=== PATIENT | female | born 1975 | race Caucasian/White ===

== ENCOUNTER 2022-02-28 22:56 | Emergency (ER) | payer BC, SELFPAY ==
[2022-02-28 23:27] VITALS: BP 142/93; PULSE 64; RESP 18; TEMP 36.6; O2SAT 97; BMI 33.9
[2022-02-28] MEDS: fluorescein 1 mg Strip EYE-RIGHT (23:43)
[2022-02-28] MEDS: tetracaine 0.5% Op Soln 4 mL Btl 1 DROP EYE-RIGHT (23:43)
--- NOTE | 2022-02-28 23:44 | W.ED.EYEPROB ---
HPI - Eye Problem General: Chief complaint: Eye Problems Stated complaint: Right eye swollen Time Seen by Provider: 02/28/22 23:37 Source: patient Mode of arrival: ambulatory Limitations: no limitations History of Present Illness: 46-year-old female who states that the last 2 to 3 days she been having some increased sinus pressure states she gets chronic sinus infections. States that though this morning she woke up with pain and redness to her right and her eye was swollen shut she states she does wear contacts does not wear contacts throughout the day states her pain is a 5 out of 10 denies any foreign bodies denies any worsening improving factors. Associated symptoms: Denies fever(s), headache(s), nausea, neck pain or vomiting Review of Systems Const: Denies: fever(s), chills, body aches or change in appetite Eyes: Reports: eye discomfort and eye redness ENMT: Reports: nasal congestion Card: Denies: chest pain Resp: Denies: dyspnea GI: Denies: abdominal pain, nausea, vomiting or diarrhea : Denies: dysuria Musc: Denies: neck pain or back pain Skin/Breast: Denies: rash Neuro: Denies: headache(s) Psych: Denies: depression Kevin/Lymph: Denies: easy bruising All/Imm: Denies: urticaria Physical Exam Const: COMMON NORMALS: no acute distress, patient oriented x3 and healthy appearing HENMT: COMMON NORMALS: normocephalic and atraumatic HEAD & SCALP: normocephalic and atraumatic Eye: COMMON NORMALS: Equal, round and reactive pupils present and EOMs intact bilaterally PUPIL: Yes Equal, round and reactive pupils present OTHER: Erythema noted to right eye no foreign bodies no abrasion no ulcer Neck/C-Spine: COMMON NORMALS: full ROM and supple Chest: COMMONS NORMALS: normal inspection of the chest Resp: COMMON NORMALS: normal respiratory effort Cardio: COMMON NORMALS: regular rate RATE: regular rate GI: INSPECTION: Yes normal to inspection Extremity: COMMON NORMALS: normal to inspection and full ROM Neuro: COMMON NORMALS: patient oriented x3, moves all extremities and no focal motor deficits Psych: COMMON NORMALS: mental status grossly normal, Normal thought process present and cooperative THOUGHT PROCESS: Normal thought process present Skin: COMMON NORMALS: no rashes or lesions noted and no wounds GENERAL SKIN EXAM: no rashes or lesions noted Course Vital Signs: Vital signs: Vital Signs Temperature 97.8 F 02/28/22 23:27 Pulse Rate 64 02/28/22 23:27 Respiratory Rate 18 02/28/22 23:27 Blood Pressure 142/93 02/28/22 23:27 Pulse Oximetry 97 02/28/22 23:27 MDM - Eye Problem Medical Decision Making Patient presents with sinusitis along with conjunctivitis she has no signs of corneal ulcer on exam we will place her on tobramycin she is not to wear her contacts until clear we will place her on Keflex for the sinus infection she is to follow-up with PCP and return if worsening she understands agrees plan. Discharge Plan Discharge Patient Disposition: Home Clinical Impression: Bacterial conjunctivitis, Sinusitis Condition: Stable Prescriptions: New tobramycin 0.3 % drops 2 drp ophthalmic (eye) Q4H 7 Days Qty: 5 0RF cephalexin 500 mg capsule 500 mg PO TID 7 Days Qty: 21 0RF Naprosyn 500 mg tablet 500 mg PO BID PRN (Reason: pain) Qty: 20 0RF Discharge Orders: Discharge ED (Routine); Ordered 02/28/22 Ordered By: Dean Mendez Discharge Diet: Advance as tolerated Discharge Activity: Resume usual activity Patient Instructions: Infectious Conjunctivitis - Adult, Sinusitis (ED) Coding Level of Care Code ED Porcelain Finish Sprayer for Lynsey Ansari
[2022-03-01] MEDS: HYDROcodone-acetaminophen 5-325 mg Tablet 1 TAB PO (00:02)
== END 2022-03-01 00:05 | disposition home or self-care (01) ==
PROVIDERS: Emergency Provider Emergency Medicine
DX: H10.89 Other conjunctivitis (principal); J32.9 Chronic sinusitis, unspecified
CPT/HCPCS: 99283

== ENCOUNTER 2022-10-16 08:49 | Emergency (ER) | payer BC, SELFPAY ==
[2022-10-16 08:57] VITALS: BP 145/97; PULSE 72; RESP 16; TEMP 36.4; O2SAT 100
[2022-10-16 08:59] VITALS: PULSE 63; RESP 16; O2SAT 98
--- NOTE | 2022-10-16 09:17 | ED_ITS ---
HPI - Eye Problem General: Chief complaint: Eye Problems Stated complaint: right eye pain Time Seen by Provider: 10/16/22 08:49 History of Present Illness: Patient is a 46-year-old female that presents to the emergency department with complaints of right eye pain. Patient reports stacy t she woke this morning with eye and eyelid pain. She states that yesterday she was working on a home that likely had carbon monoxide leak and was also working around broken glass. Patient states yesterday her eyes seem dry but no other complaints Patient denies any complaints with left eye Patient reports sensation of foreign body in the right eye. There is excessive tearing and photosensitivity. Associated symptoms: Denies fever(s), headache(s), nausea, neck pain or vomiting Review of Systems General: Reports: 10 or more systems reviewed and unremarkable except in HPI and below Const: Denies: fever(s), chills, change in appetite, change in weight, fatigue or malaise Eyes: Reports: photophobia, eye discomfort, eye discharge, eye redness and dry eyes; Denies: change in vision ENMT: Denies: throat pain, enlarged tonsils, odynophagia, hoarseness, ear or mastoid pain, ear discharge, change in hearing, tinnitus, nasal discharge, nasal congestion, post nasal drip or sinus pain Card: Denies: chest pain, palpitations, irregular heart rhythm, edema, dyspnea on exertion, orthopnea or leg pain with exertion Resp: Denies: dyspnea, productive cough, non-productive cough, wheezing, stridor or chest congestion GI: Denies: abdominal pain, nausea, vomiting, dysphagia, diarrhea, constipation, bloating, GI cramping or hematochezia : Denies: flank pain, difficulty voiding, dysuria, urinary frequency, urinary urgency, urinary hesitancy, oliguria or hematuria Musc: Denies: neck pain, back pain, extremity pain, joint pain, joint swelling, joint redness, joint warmth or muscle weakness Skin/Breast: Denies: rash, pruritus, erythema, photosensitivity or new lesions Neuro: Denies: headache(s), numbness in extremities, weakness in extremities, sensory changes, lack of coordination, difficulty walking, frequent falls, dizziness, confusion, Slurred speech present, difficulty communicating thoughts, seizure-like activity or involuntary movements Endo: Denies: polyuria, polydipsia or tired all the time Kevin/Lymph: Denies: easy bruising or easy bleeding Physical Exam Narrative: EXAM NARRATIVE: Alert and oriented x3 Calm and cooperative Well-appearing Const: COMMON NORMALS: no acute distress, average body habitus and patient oriented x3 HENMT: OTHER: Reports symptoms of sinusitis Right eye pain Eye: GENERAL EYE: normal light reflex ALIGNMENT: Yes alignment normal PERIORBITAL: periorbital findings abnormal positive right (No crepitus, ecchymosis, erythema noted) periorbital swelling and periorbital tenderness (Tender to palpation over the upper lid) EYELID: eyelid abnormality right upper eyelid swelling and tenderness CONJUNCTIVA: Yes conjunctival abnormal positive right conjunctival injection DIRECT OPHTHALMOSCOPY: Yes normal light reflex SLIT LAMP EXAM: Yes lids/lashes/lacrimal system Lids/lashes/lacrimal system details: lid swelling/edema and Yes conjunctiva/sclera Conjunctiva/sclera details: diffuse conjunctiva injection Neck/C-Spine: COMMON NORMALS: full ROM, supple and no meningeal signs Resp: COMMON NORMALS: normal respiratory effort, No retractions and No use of accessory muscles EFFORT & INSPECTION: Yes able to speak in complete sentences and Yes symmetric chest movement Cardio: COMMON NORMALS: regular rate and regular rhythm RATE: regular rate RHYTHM: regular rhythm OTHER: Extremities are well-perfused Neuro: COMMON NORMALS: patient oriented x3 MENINGEAL SIGNS: Yes no meningeal signs Course Vital Signs: Vital signs: Vital Signs Temperature 97.5 F L 10/16/22 08:57 Pulse Rate 72 10/16/22 08:57 Respiratory Rate 16 10/16/22 10:30 Blood Pressure 145/97 10/16/22 08:57 Pulse Oximetry 96 10/16/22 10:30 MDM - Eye Problem Medical Decision Making Patient is in ER today for complaint of right eye pain. Patient denies any kn own injury to the eye. Patient is a contact lens wear and she reports that she did take her lens out yesterday. Has been trialing tobramycin at home Differential diagnosis include periorbital cellulitis, abrasion, chemical exposure, foreign body, Patient was examined for right eye pain and upper lid swelling. I did attempt to use the slit-lamp but had some difficulty due to state of the slit-lamp. Did use tetracaine to numb, fluorescein to dye and Bertrand lamp to assess for foreign body or abrasion. Exam was challenging due to patient's discomfort. Patient is concerned that she has a foreign body or substance in her eye. We did use the Gordon's lens and was able to flush approximately 300 cc across the eye. Patient did not tolerate this and therefore it was discontinued. I spoke with my attending, Dr. Roper. We elected to perform a CT orbits to further assess for possible periorbital cellulitis. IV was started, I obtained CBC and basic metabolic panel. He was given IV anxiolytic and pain medication. She did become nauseated from the medication and was given Zofran. CT reveals the following: Asymmetrical enlargement with marked enhancement of the right lacrimal gland compared to the left as well as subtle thickening and enhancement involving the anterior margin of the right globe and immediate soft tissues. Findings may be inflammatory in nature representing dacryoadenitis and anterior scleritis. However other considerations such as infiltrative lymphomatous or granulomatous process such as sarcoidosis should be considered. The retrobulbar fat planes and structures are unremarkable. There is no radiopaque foreign body. There is a 2 cm polyp or retention cyst left maxillary sinus. I have reviewed these findings with my attending, Dr. Roper as well as Dr. Orr paralegal specialist. Patient is to be started on systemic steroids. Patient should also be covered antibiotic landry. She is allergic to Augmentin which was recommended. I have started her on clindamycin and cefdinir. She will start these antibiotics here and prescriptions today. 125 mg of Solu-Medrol given patient will go home on 60 mg of prednisone daily for 1 week Patient will also be sent home with hydrocodone, prescribed by Dr. Roper. Patient to be seen by Dr. Orr on Monday. Lab Data 10/16/22 10:20 10/16/22 10:[address] 10/16/22 10:04 IMPRESSION: Asymmetric enlargement and enhancement of the right lacrimal gland with accompanying subtle thickening/enhancement of the anterior sclera right lobe probably inflammatory in nature as discussed above. Continued follow-up advised. Laboratory Results WBC 6.7 10^3/uL (4.0-10.0) 10/16/22 10:20 RBC 5.41 10^6/uL (4.1-5.3) H 10/16/22 10:20 Hgb 17.3 g/dL (11.5-15.3) H 10/16/22 10:20 Hct 52.3 % (37.0-47.0) H 10/16/22 10:20 MCV 96.7 fl (81-99) 10/16/22 10:20 MCH 32.0 pg (28.0-34.0) 10/16/22 10:20 MCHC 33.1 g/dL (30.0-36.0) 10/16/22 10:20 RDW 13.7 % (12.1-15.1) 10/16/22 10:20 Plt Count 269 10^3/cmm (130-400) 10/16/22 10:20 MPV 10.8 fL (7.4-10.4) H 10/16/22 10:20 Neut % (Auto) 62.0 % 10/16/22 10:20 Lymph % (Auto) 30.6 % 10/16/22 10:20 [place] % (Auto) 4.6 % 10/16/22 10:20 Eos % (Auto) 1.8 % 10/16/22 10:20 Baso % (Auto) 0.9 % 10/16/22 10:20 Neut # (Auto) 4.18 10^3/uL (1.8-7.7) 10/16/22 10:20 Lymph # (Auto) 2.1 10^3/uL (0.8-4.8) 10/16/22 10:20 [place] # (Auto) 0.3 10^3/uL (0.2-0.9) 10/16/22 10:20 Eos # (Auto) 0.1 10^3/uL (0.0-0.8) 10/16/22 10:20 Baso # (Auto) 0.1 10^3/uL (0.0-0.1) 10/16/22 10:20 Nucleated RBC % (auto) 0 % 10/16/22 10:20 Nucleated RBCs # 0.0 /100WBC 10/16/22 10:20 Sodium 130 mmol/L (136-145) L 10/16/22 10:56 Potassium 4.2 mmol/L (3.5-5.1) 10/16/22 10:56 Chloride 97 mmol/L (98-107) L 10/16/22 10:56 Carbon Dioxide 26 mmol/L (22-29) 10/16/22 10:56 Anion Gap 11.2 (5-19) 10/16/22 10:56 BUN 10 mg/dL (6-20) 10/16/22 10:56 Creatinine 0.8 mg/dL (0.5-0.9) 10/16/22 10:56 GFR Calculation 77.2 mL/min (90-130) L 10/16/22 10:56 Glucose 91 mg/dL (65-115) 10/16/22 10:56 Calculated Osmolality 269 mOsm/kg (285-295) L 10/16/22 10:56 Calcium 8.7 mg/dL (8.5-10.5) 10/16/22 10:56 Discharge Plan Discharge Patient Disposition: Home Clinical Impression: Dacryoadenitis Condition: Stable Prescriptions: New hydrocodone-acetaminophen 5-325 mg tablet 1 tab PO Q8H PRN (Reason: pain) Qty: 7 0RF cefdinir 300 mg capsule 300 mg PO BID 7 Days Qty: 14 0RF clindamycin HCl 300 mg capsule 300 mg PO TID 7 Days Qty: 21 0RF prednisone 20 mg tablet 60 mg PO DAILY 6 Days Qty: 18 0RF ondansetron 4 mg tablet,disintegrating 4 mg PO Q8H 5 Days Qty: 15 0RF No Action Naprosyn 500 mg tablet 500 mg PO BID PRN (Reason: pain) Qty: 20 0RF Discharge Orders: Discharge ED (Routine); Ordered 10/16/22 Ordered By: Ruby Ambrose McTeer Referrals: Lit Orr [Physician] - Discharge Diet: Advance as tolerated Discharge Activity: Resume usual activity Patient Instructions: Pain Management Activity Restrictions/Additional Instructions: Please follow-up with Dr. Orr on Monday. Take your antibiotics, your steroids, your pain medication and antiemetics as prescribed Please return to the emergency department for new concerning or worsening symptoms Coding Level of Care Code ED Underwriting Consultant for Lynsey Ansari History Comprehensive Exam Detailed Medical Decision Making High Complexity
[2022-10-16] MEDS: fluorescein 1 mg Strip EYE-RIGHT (09:19)
[2022-10-16] MEDS: tetracaine 0.5% Op Soln 4 mL Btl 1 DROP EYE-RIGHT (09:19)
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
[2022-10-16 10:30] VITALS: RESP 16; O2SAT 96
[2022-10-16] MEDS: fentaNYL 50 mcg/mL INJ 2mL IVP (10:30)
[2022-10-16] MEDS: LORazepam 2 mg/mL INJ 1 mL IVP (10:31)
[2022-10-16] MEDS: ketorolac 30 mg/mL INJ IVP (10:31)
[2022-10-16 10:34] LABS: Basophils # 0.1 10^3/uL (0.0-0.1); Basophils % 0.9 %; Eosinophils # 0.1 10^3/uL (0.0-0.8); Eosinophils % 1.8 %; Hematocrit 52.3 % (37.0-47.0); Hemoglobin 17.3 g/dL (11.5-15.3); Lymphocytes # 2.1 10^3/uL (0.8-4.8); Lymphocytes % 30.6 %; Mean Corpuscular HGB Conc 33.1 g/dL (30.0-36.0); Mean Corpuscular Volume 96.7 fl (81-99); Mean Platelet Volume 10.8 fL (7.4-10.4); Monocytes # 0.3 10^3/uL (0.2-0.9); Monocytes % 4.6 %; Neutrophils # 4.18 10^3/uL (1.8-7.7); Nucleated Red Blood Cells % 0 %; Platelet Count 269 10^3/cmm (130-400); Red Blood Count 5.41 10^6/uL (4.1-5.3); Red Cell Distribution Width 13.7 % (12.1-15.1); White Blood Count 6.7 10^3/uL (4.0-10.0)
[2022-10-16] MEDS: iohexol 350 mg/mL 500 mL Btl (per mL) IV (10:57)
[2022-10-16 10:59] VITALS: BP 125/82; PULSE 62; O2SAT 95
[2022-10-16] MEDS: ondansetron 2 mg/ML SDV 2 mL 4 MG IVP (11:04)
[2022-10-16 11:16] LABS: Blood Urea Nitrogen 10 mg/dL (6-20); Calcium 8.7 mg/dL (8.5-10.5); Carbon Dioxide 26 mmol/L (22-29); Chloride 97 mmol/L (98-107); Glomerular Filtration Rate 77.2 mL/min (90-130); Glucose 91 mg/dL (65-115); Osmolality Calculated 269 mOsm/kg (285-295); Sodium 130 mmol/L (136-145)
[2022-10-16 11:17] LABS: Anion Gap 11.2 (5-19); Potassium 4.2 mmol/L (3.5-5.1)
[2022-10-16 12:00] VITALS: BP 134/76; PULSE 53; RESP 16; O2SAT 98
[2022-10-16] MEDS: clindamycin 150 mg Capsule 300 MG PO (12:59)
[2022-10-16] MEDS: cefdinir 300 MG CAPSULE PO (12:59)
[2022-10-16 13:10] VITALS: BP 123/74; PULSE 70; RESP 16; O2SAT 95
== END 2022-10-16 13:11 | disposition home or self-care (01) ==
PROVIDERS: Emergency Provider Nurse Practitioner
DX: H04.001 Unspecified dacryoadenitis, right lacrimal gland (principal)
CPT/HCPCS: 36415; 70481; 80048; 85025; 96374; 96375; 99285; J1885; J2060; J2405; J2930; J3010; Q9967

== ENCOUNTER 2023-08-23 15:36 | Emergency (ER) | payer BC, SELFPAY ==
[2023-08-23 15:42] VITALS: BP 149/100; PULSE 78; RESP 16; TEMP 36.6; O2SAT 98; BMI 34.5
--- NOTE | 2023-08-23 15:56 | XRR_ITS ---
PROCEDURE INFORMATION: Exam: XR Chest Exam date and time: 08/23/2023 4:10 PM Age: 47 years old Clinical indication: Cough and fever TECHNIQUE: Imaging protocol: Radiologic exam of the chest. Views: 1 view. COMPARISON: No relevant prior studies available. FINDINGS: Lungs: Unremarkable. No consolidation. Pleural spaces: Unremarkable. No pleural effusion. No pneumothorax. Heart/Mediastinum: Unremarkable. No cardiomegaly. Bones/joints: Unremarkable. XR/XR chest 1V portable [id number] IMPRESSION: No acute findings.
--- NOTE | 2023-08-23 16:13 | ED_ITS ---
HPI - URI/Sore Throat General: Chief Complaint: Upper Respiratory Infection Stated Complaint: fever, congestion Time Seen by Provider: 08/23/23 16:00 Source: patient Mode of arrival: ambulatory Limitations: no limitations History of Present Illness: 47-year-old female states over the last 4 to 5 days she is having body aches cough chills along with sore throat. She saw her PCP 2 days ago she states that he thought she may have a pneumonia started on antibiotics she did not have any swabs or chest x-ray. 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 Denies any vomiting denies any diarrhea she is in no respiratory distress here. Associated symptoms: Deny abdominal pain, chills, chest pain, diarrhea, fever(s), headache(s), nausea or vomiting Review of Systems Const: Reports: body aches and fatigue; Denies: fever(s), chills or change in appetite ENMT: Reports: throat pain; Denies: dental pain Card: Denies: chest pain Resp: Reports: dyspnea and non-productive cough GI: Denies: abdominal pain, nausea, vomiting or diarrhea : Denies: dysuria Musc: Reports: back pain; Denies: neck pain Skin/Breast: Denies: rash Neuro: Denies: headache(s) PFSH ED PFSH: Social History Smoking and tobacco/nicotine status: former use of tobacco/nicotine Alcohol intake: current Alcohol intake frequency: few times a week Substance/Drug Use: current Substance/Drug use frequency: daily Physical Exam Const: COMMON NORMALS: no acute distress, patient oriented x3 and healthy appearing HENMT: COMMON NORMALS: normocephalic and atraumatic HEAD & SCALP: normocephalic and atraumatic THROAT: posterior oropharynx normal Eye: COMMON NORMALS: Equal, round and reactive pupils present and EOMs intact bilaterally PUPIL: Yes Equal, round and reactive pupils present Neck/C-Spine: COMMON NORMALS: full ROM and supple Chest: COMMONS NORMALS: normal inspection of the chest and normal palpation of entire chest wall Resp: COMMON NORMALS: normal respiratory effort, No retractions, No use of accessory muscles and clear to auscultation bilaterally AUSCULTATION: clear to auscultation bilaterally Cardio: COMMON NORMALS: regular rate, regular rhythm and No murmurs present (Cardio) RATE: regular rate RHYTHM: regular rhythm Extremity: COMMON NORMALS: normal to inspection and full ROM Neuro: COMMON NORMALS: patient oriented x3, moves all extremities and no focal motor deficits Psych: COMMON NORMALS: mental status grossly normal, Normal thought process present and cooperative THOUGHT PROCESS: Normal thought process present Skin: COMMON NORMALS: no rashes or lesions noted and no wounds GENERAL SKIN EXAM: no rashes or lesions noted Course Vital Signs: Vital signs: Vital Signs Temperature 97.8 F 08/23/23 15:42 Pulse Rate 78 08/23/23 15:42 Respiratory Rate 16 08/23/23 15:42 Blood Pressure 149/100 08/23/23 15:42 Pulse Oximetry 98 08/23/23 15:42 Oxygen Delivery Me thod Room Air 08/23/23 15:42 MDM - URI/Sore Throat Medical Decision Making Patient presents with cough sore throat fever likely viral URI x-ray shows no large pneumonia she is well-appearing here she is to continue her antibiotics that have been started viral panel is still pending she is stable for discharge she is to follow-up with PCP and return if worsening. Medical Records I reviewed the patient's medical records. All radiology interpretation(s) finalized by discharge Discharge Plan Discharge Patient Disposition: Home Clinical Impression: Upper respiratory infection Condition: Stable Prescriptions: New naproxen [Naprosyn] 500 mg tablet 500 mg PO BID PRN (Reason: pain) Qty: 20 0RF No Action hydrocodone-acetaminophen 5-325 mg tablet 1 tab PO Q8H PRN (Reason: pain) Qty: 7 0RF Discharge Orders: Discharge ED (Routine); Ordered 08/23/23 Ordered By: Dean Mendez Referrals: Jose Daniel Mcclure MD [Primary Care Provider] - 1-3 days Discharge Diet: Advance as tolerated Discharge Activity: Resume usual activity Patient Instructions: Upper Respiratory Infection (ED) Coding Level of Care Code ED [employer]os Architect for Lynsey Ansari
[2023-08-23] MEDS: HYDROcodone-acetaminophen 5-325 mg Tablet 1 TAB PO (16:42)
[2023-08-23] MEDS: dexamethasone 10 mg/mL INJ IM (16:42)
[2023-08-23 18:36] LABS: Adenovirus Not Detected (NOT DETECT); Chlamydia Pneumoniae Not Detected (NOT DETECT); Coronavirus 229E,HKU1,NL63,OC4 Not Detected (NOT DETECT); Human Metapneumovirus Not Detected (NOT DETECT); Human Rhinovirus/Enterovirus Detected (NOT DETECT); Influenza A Not Detected (NOT DETECT); Influenza A H1 Not Detected (NOT DETECT); Influenza A H1-2009 Not Detected (NOT DETECT); Influenza A H3 Not Detected (NOT DETECT); Influenza B Not Detected (NOT DETECT); Mycoplasma Pneumoniae Not Detected (NOT DETECT); Parainfluenza Virus Type 1 Not Detected (NOT DETECT); Parainfluenza Virus Type 2 Not Detected (NOT DETECT); Parainfluenza Virus Type 3 Not Detected (NOT DETECT); Parainfluenza Virus Type 4 Not Detected (NOT DETECT); Respiratory Syncytial Virus A Not Detected (NOT DETECT); Respiratory Syncytial Virus B Not Detected (NOT DETECT); SARS-COV-2 Not Detected (NOT DETECT)
== END 2023-08-23 16:53 | disposition home or self-care (01) ==
PROVIDERS: Emergency Provider Emergency Medicine; PCP Family Medicine
DX: J06.9 Acute upper respiratory infection, unspecified (principal); Z87.891 Personal history of nicotine dependence
CPT/HCPCS: 71045; 87486; 87581; 87633; 96372; 99284; J1100